=== PATIENT | female | born 1985 | race Caucasian/White ===

== ENCOUNTER → 2018-04-23 | Outpatient (CLI) | payer OTHER | LOC: YCFC.O 14:18 | PROVIDERS: ATTEND Nurse Practitioner Family | DX: Z00.00 Encounter for general adult medical examination without abnormal findings (principal) ==

== ENCOUNTER → 2018-06-05 | Outpatient (CLI) | payer OTHER ==
--- NOTE | 2018-06-06 20:15 | MAM ---
EXAM DESCRIPTION: 3D Screening BILATERAL : Digital Mammography. CLINICAL HISTORY: 33 years Female SCREENING-FAMILY HX . No complaints. No personal history of breast cancer. Remote family history of breast cancer. Childbirth. Patient has IUD. Lifetime risk of developing breast cancer (Tyrer-Cuzick model)(%): Not calculated due to young age. COMPARISON: 2-D digital screening bilateral mammography 02/16/2015.. No prior reports available. TECHNIQUE: Bilateral CC and MLO projection full-field images, digital tomosynthesis mammographic technique. Bilateral digital 2-D full-field MLO images. CAD not available for tomosynthesis or 2-D images. FINDINGS: The breast parenchymal density pattern is: Scattered fibroglandular densities. No skin thickening or nipple retraction. Bilateral reduction in fibroglandular densities since the prior study. Left axillary lymph node. Well-defined mass upper outer quadrant right breast is no longer present. No new focal, stellate mass or density, focal asymmetry , and no suspicious microcalcifications bilaterally. IMPRESSION: Benign exam. BIRAD CATEGORY: 2 BENIGN FINDINGS. RECOMMENDATIONS: FOLLOW UP: Routine digital bilateral mammographic screening, one year interval from May 2018. Written communication explaining the IMPRESSION and follow-up, will be mailed to the patient and referring health care provider. According to the [employer], yearly mammograms are recommended starting at age 40 and continuing as long as a woman is in good health. Any breast change noted on a breast self-exam should be reported promptly to the patient's healthcare provider. Breast MRI is recommended for women with an approximately 20-25% or greater lifetime risk of breast cancer, including women with a strong family history of breast or ovarian cancer and women who have been treated for Hodgkin's disease. A negative mammographic report should not delay tissue diagnosis in patients with significant clinical history or physical findings. Extremely dense breast tissue limits the sensitivity of digital mammography. Electronically signed by: Fab Buck MD 06/06/2018 8:13 PM [employer]
== END ==
LOC: MAMMO 12:00
PROVIDERS: ATTEND Nurse Practitioner Family
DX: Z12.31 Encounter for screening mammogram for malignant neoplasm of breast (principal)

== ENCOUNTER 2018-08-25 20:19 | Emergency (ER) | payer BC, OTHER ==
[2018-08-25 21:02] VITALS: TEMP 99.9
--- NOTE | 2018-08-25 21:16 | RAD ---
STUDY: Left ankle series. HISTORY: Pain status post fall. COMPARISON: None. FINDINGS: No acute fracture or dislocation. Joint spaces are preserved. Soft tissues are unremarkable. IMPRESSION: No acute findings. Electronically signed by: Raul Coronado MD 08/25/2018 9:13 PM CDT
--- NOTE | 2018-08-25 21:17 | RAD ---
STUDY: Left knee radiograph. HISTORY: Pain status post fall. COMPARISON: None. FINDINGS: No acute fracture or dislocation. Joint spaces are preserved. Soft tissues unremarkable. IMPRESSION: No acute findings. Electronically signed by: Raul Coronado MD 08/25/2018 9:14 PM CDT
--- NOTE | 2018-08-25 21:25 | ED.PDOC ---
History of Present Illness - General Chief Complaint: Lower Extremity Injury Stated Complaint: injured left ankle Time Seen by Provider: 08/25/18 20:33 Source: patient Exam Limitations: no limitations - History of Present Illness Initial Comments: the patient is a 33-year-old female presenting to emergency room after having fell off her porch and twisted her left knee and ankle. She has pain over the lateral aspect of both as well as swelling over the lateral aspect of the left ankle. She does appear to be neurologically and vascularly intact. No obvious deformity otherwise. Passive and active range of motion are preserved. No other injuries. Timing/Duration: momentarily Severity: moderate Improving Factors: immobilization Worsening Factors: movement Associated Symptoms: denies symptoms Allergies/Adverse Reactions: Allergies NO KNOWN ALLERGY Allergy (Verified 02/23/15 14:59) Home Medications: Ambulatory Orders Fexofenadine HCl [Keysha Allergy] 60 mg PO DAILY 02/23/15 Hctz 25 mg/Triamterene 37.5 mg [Maxzide-25] 1 ea PO DAILY 02/23/15 Phentermine HCl 37.5 mg PO DAILY@1200 02/23/15 Review of Systems - Review of Systems Constitutional: States: no symptoms reported EENTM: States: no symptoms reported Respiratory: States: no symptoms reported Cardiology: States: no symptoms reported Gastrointestinal/Abdominal: States: no symptoms reported Genitourinary: States: no symptoms reported Musculoskeletal: States: see HPI Skin: States: no symptoms reported Neurological: States: no symptoms reported Endocrine: States: no symptoms reported All other Systems: No Change from Baseline Past Medical History (General) - Patient Medical History Hx Seizures: No Hx Stroke: No Hx Dementia: No Hx Asthma: No Hx of COPD: No Hx Cardiac Disorders: No Hx Congestive Heart Failure: No Hx Pacemaker: No Hx Hypertension: No Hx Thyroid Disease: No Hx Diabetes: No Hx Gastroesophageal Reflux: No Hx Renal Disease: No Hx Cancer: No Hx of HIV: No Hx Hepatitis C: No Hx MRSA: No Surgical History: other - Vaccination History Hx Tetanus, Diphtheria Vaccination: Yes Hx Influenza Vaccination: Yes Hx Pneumococcal Vaccination: No - Social History Hx Tobacco Use: No Hx Alcohol Use: No Hx Substance Use: No Hx Substance Use Treatment: No Hx Depression: No Family Medical History - Family History Mother Family History: Unknown Living Status: Unknown Physical Exam - Physical Exam General Appearance: Alert, No apparent distress Eye Exam: bilateral normal Ears, Nose, Throat: hearing grossly normal Neck: full range of motion, supple Respiratory: no respiratory distress, no accessory muscle use Cardiovascular/Chest: normal peripheral pulses, no edema Peripheral Pulses: dorsalis pedis,right: 2+, dorsalis pedis,left: 2+, posterior tibialis,right: 2+, posterior tibialis,left: 2+ Rectal Exam: deferred Extremity: normal range of motion, no pedal edema, no calf tenderness, normal capillary refill, other - see history of present illness Neurologic: alert, normal mood/affect, oriented x 3 Skin Exam: normal color Comments: Vital Signs - 24 hr 08/25/18 20:30 Temperature 99.9 F H Pulse Rate [ 93 H left] Respiratory 18 Rate Blood Pressure 130/97 [left] O2 Sat by Pulse 95 Oximetry Progress - Progress Progress: 08/25/18 21:24 the patient is a 33-year-old female presenting to the emergency room after an accidental fall presenting with what appears to be a mild left lateral knee sprain and a moderate left lateral ankle sprain. she needs to ambulate carefully to prevent further falls. [id number] medication such as Tylenol or Motrin will help some. She needs to avoid athletic activity for the next few weeks on this. No evidence of fracture or dislocation seen on the x-rays. ER warnings were given for any acute worsening. Departure - Departure Clinical Impression: Left knee sprain Qualifiers: Encounter type: initial encounter Involved ligament of knee: unspecified ligament Qualified Code(s): S83.92XA - Sprain of unspecified site of left knee, initial encounter Moderate left ankle sprain Qualifiers: Encounter type: initial encounter Qualified Code(s): S93.402A - Sprain of unspecified ligament of left ankle, initial encounter Disposition: Discharge to Home or Self Care Condition: Fair Departure Forms: ED Discharge - Pt. Copy, Patient Portal Self Enrollment Diet: regular diet Activity: increase activity as tolerated Referrals: Ira Santana NP [Primary Care Provider] - 1-2 Weeks Home Medications: Ambulatory Orders Fexofenadine HCl [Keysha Allergy] 60 mg PO DAILY 02/23/15 Hctz 25 mg/Triamterene 37.5 mg [Maxzide-25] 1 ea PO DAILY 10/20/15 Phentermine HCl 37.5 mg PO DAILY@1200 02/23/15 Additional Instructions: the patient is a 33-year-old female presenting to the emergency room after an accidental fall presenting with what appears to be a mild left lateral knee sprain and a moderate left lateral ankle sprain. she needs to ambulate carefully to prevent further falls. [id number] medication such as Tylenol or Motrin will help some. She needs to avoid athletic activity for the next few weeks on this. No evidence of fracture or dislocation seen on the x-rays. ER warnings were given for any acute worsening.
[2018-08-25 21:46] VITALS: BP 127/88; O2SAT 97
== END 2018-08-25 21:35 | disposition home or self-care (01) ==
LOC: ER 20:19
DX: S83.92XA Sprain of unspecified site of left knee, initial encounter (principal); S93.402A Sprain of unspecified ligament of left ankle, initial encounter; W17.89XA Other fall from one level to another, initial encounter; Y92.008 Other place in unspecified non-institutional (private) residence as the place of occurrence of the external cause